=== PATIENT | male | born 1995 | race Caucasian/White ===

== ENCOUNTER 2019-11-07 00:07 | Emergency (ER) | payer BC ==
[~2019-11-07] VITALS: Ht 175.3 cm; Wt 88.6 kg
--- NOTE | 2019-11-07 00:11 | NUR ---
BIB EMS WITH ETOH INTOXICATION, PT VOMITING AND NAUSEATED. PT DENIES OTHER C/O AT THIS TIME. PT CONNECTED TO MONITORING, CALL LIGHT WITHIN REACH, ALL SAFETY MEASURES IN PLACE.
[2019-11-07] MEDS ORDERED: ALBUTEROL/IPRATROPIUM 2.5MG/0.5MG, 3 ML NPPB ONE (00:30)
--- NOTE | 2019-11-07 02:08 | NUR ---
PT RESTING ON GURNEY WITH EYES CLOSED. RESPIRATIONS EVEN AND NONLABORED.
[2019-11-07 03:22] VITALS: BP 113/65
--- NOTE | 2019-11-07 03:27 | NUR ---
PT RESTING WITH EYES CLOSED ON GURNEY. RESPIRATIONS EVEN AND NONLABORED.
--- NOTE | 2019-11-07 04:30 | NUR ---
PT ABLE TO AMBULATE WITH STEADY GAIT TO BATHROOM.
== END 2019-11-07 05:20 | disposition home or self-care (01) ==
LOC: ED 05:14
DX: F10.129 Alcohol abuse with intoxication, unspecified (principal); R11.2 Nausea with vomiting, unspecified; Y90.9 Presence of alcohol in blood, level not specified
CPT/HCPCS: 99283